=== PATIENT | male | born 1980 | race Caucasian/White ===

== ENCOUNTER 2019-05-25 10:22 | Emergency (ER) | payer OTHER ==
[~2019-05-25] VITALS: Ht 188 cm; Wt 81.7 kg
[2019-05-25] MEDS ORDERED: IBUP600 PO (13:02)
[2019-05-25] MEDS ORDERED: Bactrim Ds Tab1 EACH PO (13:02)
== END 2019-05-25 13:45 ==
LOC: ER 10:22
DX: S20.211A Contusion of right front wall of thorax, initial encounter (principal); M70.22 Olecranon bursitis, left elbow; F17.210 Nicotine dependence, cigarettes, uncomplicated; V49.9XXA Car occupant (driver) (passenger) injured in unspecified traffic accident, initial encounter
CPT/HCPCS: 20605; 70450; 70491; 71046; 73080; 87070; 87075; 87205; 99284-25; A9270-GY; Q9967

== ENCOUNTER 2020-02-21 23:46 | Emergency (ER) | payer OTHER ==
[~2020-02-21] VITALS: Ht 188 cm; Wt 88.5 kg
[~2020-02-21 23:46] MED LIST: Bactrim Ds Tab1 EACH PO; IBUP600 PO
== END 2020-02-22 02:08 | disposition home or self-care (01) ==
LOC: ER 23:46
DX: S61.212A Laceration without foreign body of right middle finger without damage to nail, initial encounter (principal); Z23 Encounter for immunization; F17.210 Nicotine dependence, cigarettes, uncomplicated; W45.8XXA Other foreign body or object entering through skin, initial encounter
CPT/HCPCS: 73140; 90714; 96374; 96375; 99285-25

== ENCOUNTER → 2020-08-22 | Outpatient (CLI) | payer OTHER ==
[2020-08-24 09:11] LABS: HEPATITIS C QUANTITATION HCV Not Detected IU/mL (.)
== END | disposition home or self-care (01) ==
LOC: LAB 09:30 → LAB SHORT 09:30
PROVIDERS: Internal Medicine
DX: Z77.21 Contact with and (suspected) exposure to potentially hazardous body fluids (principal)
CPT/HCPCS: 86803; 87522

== ENCOUNTER → 2020-12-05 | Outpatient (CLI) | payer OTHER ==
[2020-12-08 17:11] LABS: HEPATITIS C QUANTITATION HCV Not Detected IU/mL (.)
== END | disposition home or self-care (01) ==
LOC: LAB 16:00 → LAB SHORT 16:00
PROVIDERS: Internal Medicine
DX: Z77.21 Contact with and (suspected) exposure to potentially hazardous body fluids (principal)
CPT/HCPCS: 86803; 87522